=== PATIENT | male | born 1990 | race Caucasian/White ===

== ENCOUNTER 2016-11-02 14:04 | Emergency (ER) | payer BC ==
[~2016-11-02] VITALS: Ht 170.2 cm; Wt 68.8 kg
[~2016-11-02 14:04] MED LIST: ACET-749 PO; PRDXLUD MT; QUET1TAB7 PO; SERT50TA PO
[2016-11-02 14:11] VITALS: TEMP 36.8; Ht 170.2 cm; Wt 68.8 kg
[2016-11-02] MEDS ORDERED: QUET1TAB30 PO (14:35)
[2016-11-02 15:23] LABS: BASO % 0.3 %; BASO ABS # 0.03 K/uL (0-0.2); COMPLETE YES; EOS % 1.1 %; HEMATOCRIT 42.6 % (42-52); IG% 0.2 %; LYMPH % 20.8 %; LYMPH ABS # 2.18 K/uL (1.2-3.4); MEAN CELL VOLUME 84.2 fL (80-100); MEAN CORPUSCULAR HEMOGLOBIN 29.4 pg (25-34); MEAN PLATELET VOLUME 11.7 fL (7.4-10.4); MONO % 6.8 %; NEUT % 70.8 %; PLATELET COUNT 191 K/uL (130-400); RED BLOOD COUNT 5.06 M/uL (4.7-6.1); WHITE BLOOD COUNT 10.48 K/uL (4.8-10.8)
[2016-11-02 15:29] LABS: URINE APPEARANCE CLEAR (CLEAR); URINE BILIRUBIN NEG (NEG); URINE COLOR DK YELLOW; URINE EPITHELIAL CELL AUTO 20-30 /lpf (0-5); URINE NITRITE NEG (NEG); URINE SPECIFIC GRAVITY 1.022 (1.000-1.030); UROBILINOGEN NEG (NEG)
[2016-11-02 15:31] LABS: MANUAL MICROSCOPIC REQUIRED? NO; REVIEW REQ? NO
[2016-11-02 15:46] LABS: ALT/SGPT 18 U/L (12-78); AST/SGOT 8 U/L (15-37); BLOOD UREA NITROGEN 9 mg/dl (7-18); BUN/CREATININE RATIO 8.2 (10-20); CALCIUM 9.2 mg/dl (8.5-10.1); CARBON DIOXIDE 29 mmol/L (21-32); CHLORIDE 106 mmol/L (98-107); GLUCOSE 89 mg/dl (70-99); POTASSIUM 3.8 mmol/L (3.5-5.1); SODIUM 143 mmol/L (136-145)
[2016-11-02 15:49] LABS: BENZODIAZEPINE, URINE NEG (NEG); COCAINE,URINE NEG (NEG); PHENCYCLIDINE, URINE NEG (NEG)
[2016-11-02 15:57] LABS: ALB/GLOB RATIO 1.2 (0.9-2); ALKALINE PHOSPHATASE 65 U/L (45-117); THYROID STIMULATING HORMONE 0.513 uIu/ml (0.300-4.500)
--- NOTE | 2016-11-02 16:15 | EMERGENCY ROOM VISIT NOTE ---
History Report prepared by Qamaribricardo: Suzette Owusu Under the Supervision of: Dr. Rodolfo Portillo D.O. First contact with patient: 13:51 Chief Complaint: MENTAL HEALTH EVALUATION Stated Complaint: MENTAL HEALTH History of Present Illness The patient is a 26 year old male who presents to the Emergency Room with complaints of needing a mental health evaluation. He admits to recently worsening anxiety and depression, and states "yesterday I had a meltdown". He has history of anxiety and depression but notes he has been off his regular psychiatric medications for the past few months as his insurance ran out, and he could not continue to afford the medications, which included Zoloft. The patient admits to having recent suicidal thoughts for the past few days, stating "I wanted to disappear". He notes he has lost custody of two of his children, and recently lost custody of the 3rd child with his ex-girlfriend. He states seeing posts on Facebook where friends and family were calling him "worthless" and a " beat dad", made him feel even more depressed. There is a 302 warrant that has been issued on the patient his by his ex-girlfriend after he told her something along the lines of "no one is going to see me again " last night. The patient reports he no longer had a place to live until last night, when a coworker of his took him in and gave him a room in her home. He also complains of racing thoughts and chest discomfort because of his anxiety. He denies any other medical complaints at this time. The patient was treated inpatient at the [facility] when he was in High School after a previous suicide attempt, but states he has never been treated inpatient since then. Source of History: patient Onset: COMPLIANCE INTERN Position: other (global) Timing: worsening Modifying Factors (Worsening): other (recently going off psychiatric medications) Associated Symptoms: + chest pain Review of Systems See HPI for pertinent positives & negatives. A total of 10 systems reviewed and were otherwise negative. Past Medical & Surgical Medical Problems: (1) Abdominal pain, acute (2) Abdominal pain, acute (3) Anxiety (4) Asthma (5) Bacterial pneumonia (6) Bronchitis (7) Depression (8) Nausea (9) PNA (pneumonia) Surgical Problems: (1) S/P tonsillectomy and adenoidectomy Family History Diabetes mellitus FH: cancer Hypertension Social History Smoking Status: Current Every Day Smoker Alcohol Use: none Drug Use: none Marital Status: in relationship Housing Status: lives with family Occupation Status: unemployed Current/Historical Medications Scheduled PRN Quetiapine Fumarate (Seroquel), 25 MG PO HS PRN for Sleep Allergies Coded Allergies: No Known Allergies (Unverified , 11/02/16) Physical Exam Vital Signs Date Time Temp Pulse Resp B/P Pulse Ox O2 Delivery O2 Flow Rate FiO2 11/02/16 16:56 98 16 139/81 97 Room Air 11/02/16 14:11 36.8 81 17 134/79 99 Room Air Physical Exam GENERAL: Patient is sitting up in bed, anxious appearing, alert, well nourished , no distress, non-toxic EYE EXAM: normal conjunctiva OROPHARYNX: no exudate, no erythema, lips, buccal mucosa, and tongue normal and mucous membranes are moist NECK: supple, no nuchal rigidity, no adenopathy, non-tender LUNGS: Clear to auscultation. Normal chest wall mechanics HEART: no murmurs, S1 normal and S2 normal ABDOMEN: abdomen soft, non-tender, normo-active bowel sounds, no masses, no rebound or guarding. BACK: Back is symmetrical on inspection and there is no deformity, no midline tenderness, no CVA tenderness. SKIN: no rashes and no bruising UPPER EXTREMITIES: upper extremities are grossly normal. LOWER EXTREMITIES: No pitting edema. NEURO EXAM: Normal sensorium, cranial nerves II-XII grossly intact, normal speech, no gross weakness of arms, no gross weakness of legs. Gross sensation intact. PSYCHIATRIC: The patient denies any homicidal ideation, denies a current plan of harming himself but states he thinks about it, admits to racing thoughts and insomnia. Suicidal statements were made to his ex-girlfriend. Medical Decision & Procedures Laboratory Results 11/02/16 14:58 Red Blood Count 5.06, Mean Corpuscular Volume 84.2, Mean Corpuscular Hemoglobin 29.4, Mean Corpuscular Hemoglobin Concent 35.0, Mean Platelet Volume 11.7, Neutrophils (%) (Auto) 70.8, Lymphocytes (%) (Auto) 20.8, Monocytes (%) (Auto) 6.8, Eosinophils (%) (Auto) 1.1, Basophils (%) (Auto) 0.3, Neutrophils # (Auto) 7.42, Lymphocytes # (Auto) 2.18, Monocytes # (Auto) 0.71, Eosinophils # (Auto) 0.12, Basophils # (Auto) 0.03 11/02/16 14:58 Test 11/02/16 14:32 11/02/16 14:55 11/02/16 14:58 Urine Color DK YELLOW Urine Appearance CLEAR (CLEAR) Urine pH 7.0 (4.5-7.5) Urine Specific [place] 1.022 (1.000-1.030) Urine Protein NEG (NEG) Urine Glucose (UA) NEG (NEG) Urine Ketones TRACE (NEG) Urine Occult Blood NEG (NEG) Urine Nitrite NEG (NEG) Urine Bilirubin NEG (NEG) Urine Urobilinogen NEG (NEG) Urine Leukocyte Esterase TRACE (NEG) Urine WBC (Auto) 1-5 /hpf (0-5) Urine RBC (Auto) 0-4 /hpf (0-4) Urine Hyaline Casts (Auto) 5-10 /lpf (0-5) Urine Epithelial Cells (Auto) 20-30 /lpf (0-5) Urine Bacteria (Auto) NEG (NEG) Urine Opiates Screen NEG (NEG) Urine Methadone, Qualitative NEG (NEG) Urine Barbiturates NEG (NEG) Urine Phencyclidine (PCP) Level NEG (NEG) Ur Amphetamine/Methamphetamine NEG (NEG) MDMA (Ecstasy) Screen NEG (NEG) Urine Benzodiazepines Screen NEG (NEG) Urine Cocaine Metabolite NEG (NEG) Urine Marijuana (THC) POS (NEG) Bedside Glucose 89 mg/dl (70-99) White Blood Count 10.48 K/uL (4.8-10.8) Red Blood Count 5.06 M/uL (4.7-6.1) Hemoglobin 14.9 g/dL (14.0-18.0) Hematocrit 42.6 % (42-52) Mean Corpuscular Volume 84.2 fL (80-100) Mean Corpuscular Hemoglobin 29.4 pg (25-34) Mean Corpuscular Hemoglobin Concent 35.0 g/dl (32-36) Platelet Count 191 K/uL (130-400) Mean Platelet Volume 11.7 fL (7.4-10.4) Neutrophils (%) (Auto) 70.8 % Lymphocytes (%) (Auto) 20.8 % Monocytes (%) (Auto) 6.8 % Eosinophils (%) (Auto) 1.1 % Basophils (%) (Auto) 0.3 % Neutrophils # (Auto) 7.42 K/uL (1.4-6.5) Lymphocytes # (Auto) 2.18 K/uL (1.2-3.4) Monocytes # (Auto) 0.71 K/uL (0.11-0.59) Eosinophils # (Auto) 0.12 K/uL (0-0.5) Basophils # (Auto) 0.03 K/uL (0-0.2) RDW Standard Deviation 40.9 fL (36.4-46.3) RDW Coefficient of Variation 13.5 % (11.5-14.5) Immature Granulocyte % (Auto) 0.2 % Immature Granulocyte # (Auto) 0.02 K/uL (0.00-0.02) Anion Gap 8.0 mmol/L (3-11) Est Creatinine Clear Calc Drug Dose 96.0 ml/min Estimated GFR () 107.6 Estimated GFR (Non- 92.8 BUN/Creatinine Ratio 8.2 (10-20) Calcium Level 9.2 mg/dl (8.5-10.1) Total Bilirubin 0.4 mg/dl (0.2-1) Direct Bilirubin < 0.1 mg/dl (0-0.2) Aspartate Amino Transf (AST/SGOT) 8 U/L (15-37) Alanine Aminotransferase (ALT/SGPT) 18 U/L (12-78) Alkaline Phosphatase 65 U/L (45-117) Total Protein 7.5 gm/dl (6.4-8.2) Albumin 4.1 gm/dl (3.4-5.0) Globulin 3.4 gm/dl (2.5-4.0) Albumin/Globulin Ratio 1.2 (0.9-2) Thyroid Stimulating Hormone (TSH) 0.513 uIu/ml (0.300-4.500) Ethyl Alcohol mg/dL < 3.0 mg/dl (0-3) Laboratory results per my review. ED Course ED COURSE: Vital signs were reviewed and showed normal vital signs. The patients medical record was reviewed The above diagnostic studies were performed and reviewed. ED treatments and interventions as stated above. 1414: The patient was evaluated in room A7. A complete history and physical examination was performed. 1550: I reevaluated the patient. He is doing well and just finished lunch. 1605: Nursing informed me the patient has been medically cleared and Can Help has been paged. 1650: I reevaluated the patient. He states he wants to go home, and does not think he needs inpatient treatment at this time. 1913: Nursing informed me the patient has been accepted at [facility]. Case Management will begin transfer paperwork. 191: Upon reevaluation, the patient is resting comfortably. I discussed my findings with the patient and he understands and agrees with the treatment plan. Based on the patients age, coexisting illnesses, exam and lab findings the decision to treat as an inpatient was made. The patient remained stable while under my care. The patient will be evaluated for further management. Medical Decision Etiologies such as mood disorder, infection, hypoglycemia, electrolyte abnormalities, cardiac sources, intracerebral event, toxicologic, neurologic, as well as others were entertained. Patient is an 26-year-old male who presents the ER on a 302 for suicidal statements which made to his ex-girlfriend. He notes he has been having suicidal thoughts for the past several days but does not have a clear plan. He has been admitted before. He has a history of depression and anxiety. He has no other complaints at this time. Labs are unremarkable including CBC, BMP, LFTs, bilirubin and TSH. UA was contaminated with multiple epithelial cells. Patient was reevaluated and resting comfortably. He was evaluated by can help in 3 to was signed this patient did not want to come in willingly. Tox was positive for marijuana. Alcohol was negative. Patient was admitted on 302 transferred to [place] for mood disorder with SI. Impression Primary Impression: Mood disorder Additional Impression: Suicidal ideation Scribe Attestation The scribe's documentation has been prepared under my direction and personally reviewed by me in its entirety. I confirm that the note above accurately reflects all work, treatment, procedures, and medical decision making performed by me. Departure Information Dispostion Mental Health Acute Care (The patient has been accepted as a transfer to [facility]. He is awaiting transport) Referrals No Doctor, Assigned (PCP) Patient Instructions My [facility] Problem Qualifiers
[2016-11-02 20:37] VITALS: BP 125/75; PULSE 82; O2SAT 100
[2017-02-15] MEDS ORDERED: QUET1TAB32 PO (15:43)
[2017-02-15] MEDS ORDERED: ZLF/100 PO (15:43)
== END 2016-11-02 20:38 ==
LOC: EDSEX 14:04 → EDBD 14:04 → C.EDA 14:07
DX: F39 Unspecified mood [affective] disorder (principal); R45.851 Suicidal ideations; J45.909 Unspecified asthma, uncomplicated; F17.200 Nicotine dependence, unspecified, uncomplicated

== ENCOUNTER 2016-11-16 14:58 | Emergency (ER) | payer BC ==
[~2016-11-16] VITALS: Ht 170.2 cm; Wt 68.0 kg
[2016-11-16 14:58] VITALS: TEMP 36.8; Ht 170.2 cm; Wt 68.0 kg
[~2016-11-16 14:58] MED LIST changes: -ACET-749 PO; -PRDXLUD MT; +QUET1TAB30 PO; -QUET1TAB7 PO; -SERT50TA PO
[2016-11-16] MEDS ORDERED: ONDANSETRON INJ 2 MG/ML 2 ML VIAL IV STA (15:36)
[2016-11-16] MEDS ORDERED: SODIUM CHLORIDE 0.9% 1000ML 2,000 ML IV STA (15:36)
[2016-11-16] MEDS ORDERED: NRN100 PO (15:43)
[2016-11-16 15:49] LABS: BASO % 0.1 %; BASO ABS # 0.01 K/uL (0-0.2); COMPLETE YES; EOS % 0.5 %; HEMATOCRIT 44.1 % (42-52); IG% 0.2 %; MEAN CELL VOLUME 84.2 fL (80-100); MEAN CORPUSCULAR HEMOGLOBIN 29.6 pg (25-34); MEAN CORPUSCULAR HGB CONC 35.1 g/dl (32-36); MONO % 4.5 %; NEUT % 84.7 %; PLATELET COUNT 208 K/uL (130-400); RED BLOOD COUNT 5.24 M/uL (4.7-6.1); WHITE BLOOD COUNT 13.95 K/uL (4.8-10.8)
[2016-11-16 16:03] LABS: BUN/CREATININE RATIO 11.3 (10-20); CALCIUM 9.2 mg/dl (8.5-10.1); CREATININE 1.2 mg/dl (0.60-1.40); POTASSIUM 3.8 mmol/L (3.5-5.1)
[2016-11-16 16:06] LABS: ALB/GLOB RATIO 1.3 (0.9-2)
[2016-11-16] MEDS ORDERED: PROMETHAZINE HCL INJ 12.5 MG in SODIUM CHLORIDE 0.9% 50ML 50 ML IV STA (16:18)
[2016-11-16] MEDS ORDERED: KETOROLAC TROMETHAMINE 30 MG/ML VIAL IV STA (16:18)
--- NOTE | 2016-11-16 17:49 | DIAGNOSTIC IMAGING REPORT ---
CHEST AND ABDOMEN 2 VIEWS HISTORY: Generalized abdominal pain with nausea, vomiting, diarrhea. COMPARISON: Chest 07/11/2015. FINDINGS: The lungs are clear. The cardiomediastinal silhouette is within normal limits. There is no pneumoperitoneum or pneumatosis. There are few borderline dilated air-filled loops of small bowel within the abdomen measuring up to 3.1 cm in diameter. There is gas seen throughout the colon.. A few calcifications within the left deep pelvis favor phleboliths. No renal or ureteral calculi. IMPRESSION: 1. No acute process within the chest. 2. A few borderline dilated air-filled loops of small bowel within the abdomen. However, there remains gas gas and stool within the colon. Therefore, this favors a mild ileus or possibly a low-grade partial small bowel obstruction. Electronically signed by: Ronnie Caldwell M.D. 11/16/2016 5:48 PM Dictated Date/Time: 11/16/2016 5:45 PM
[2016-11-16] MEDS ORDERED: OPTIRAY 320 IV PRN (18:30)
[2016-11-16 19:31] LABS: URINE APPEARANCE CLEAR (CLEAR); URINE BILIRUBIN NEG (NEG); URINE COLOR YELLOW; URINE NITRITE NEG (NEG); URINE PH >= 9.0 (4.5-7.5); URINE SPECIFIC GRAVITY > 1.045 (1.000-1.030); UROBILINOGEN NEG (NEG)
[2016-11-16 19:35] LABS: MANUAL MICROSCOPIC REQUIRED? NO; REVIEW REQ? NO
--- NOTE | 2016-11-16 19:44 | DIAGNOSTIC IMAGING REPORT ---
ABDOMEN AND PELVIS CT WITH IV CONTRAST CT DOSE: 304.66 mGy.cm HISTORY: Generalized abdominal pain. Nausea. Vomiting. TECHNIQUE: Multiaxial CT images of the abdomen and pelvis were performed following the use of intravenous contrast. COMPARISON STUDY: Chest and abdominal series 11/16/2016. FINDINGS: The lung bases are clear. No pneumoperitoneum. No pneumatosis. The liver, gallbladder, pancreas, right adrenal gland, and kidneys are unremarkable. No hydronephrosis. A 6 mm hypodense lesion within the spleen is too small to characterize but statistically represents a benign lesion. An indeterminate 1.8 cm left adrenal gland nodule. No retroperitoneal lymphadenopathy. The bladder is unremarkable. No pelvic fluid. Multiple borderline dilated gas and fluid-filled loops of small bowel seen throughout the abdomen. There is no transition point to suggest a bowel obstruction. The colon is normal in course and caliber. There is a normal appendix measuring up to 5 mm. No bowel wall thickening. IMPRESSION: 1. Multiple borderline dilated gas and fluid-filled loops of small bowel seen throughout the abdomen. There is no transition point to suggest an obstruction. This could represent an ileus or gastroenteritis. 2. No bowel wall thickening. 3. Normal appendix. 4. An indeterminate 1.8 cm left adrenal gland nodule. Follow-up nonemergent dedicated adrenal CT can be used for further characterization. Electronically signed by: Ronnie Caldwell M.D. 11/16/2016 7:43 PM Dictated Date/Time: 11/16/2016 7:35 PM
[2016-11-16] MEDS ORDERED: ONDA4TAB10 SL (19:48)
--- NOTE | 2016-11-16 19:49 | EMERGENCY ROOM VISIT NOTE ---
History First contact with patient: 15:36 Chief Complaint: VOMITING Stated Complaint: NAUSEA, VOMITING, DIARRHEA Nursing Triage Summary: Per EMS, patient c/o of n/v/d. Emesis x 2 [employer]. Patient c/o of abdominal pain and headache since yesterday. Patient denies drinking alcohol yesterday but reports smoking marihuanna. History of Present Illness Patient is a 26-year-old white male who presents to the emergency department by ambulance from his PCPs office for evaluation of abdominal pain, nausea, vomiting and diarrhea. He states that his symptoms started with diarrhea about 3 days ago. He reports multiple loose, watery bowel movements per day. Today, he woke up nauseous and vomited 4. He states that his last episode of vomiting was upon arrival in the emergency department. He reports generalized body and muscle aches as well. He tried to eat and drink but would vomit afterwards. He was seen at the [facility] office for his symptoms today and apparently was near syncopal and had an episode of tingling in his hands and cramping in his hands which prompted them to call the ambulance to bring him here to the emergency department. He reports bilateral lower abdominal pain that he rates a 6/10. He has not had a fever. He reports that his roommate has been sick with similar symptoms. 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 He has not been on any antibiotics recently. He denies melena, hematochezia or hematemesis. Positive marijuana use. He has never had any abdominal surgeries. Review of Systems Review of systems as per HPI. All other systems reviewed were negative. 10 systems reviewed. Past Medical/Surgical History Medical Problems: (1) Abdominal pain, acute (2) Abdominal pain, acute (3) Anxiety (4) Asthma (5) Asthma exacerbation (6) Back strain (7) Bacterial pneumonia (8) Bronchitis (9) Depression (10) Hand laceration (11) Mood disorder (12) Nausea (13) PNA (pneumonia) (14) Severe gingivitis (15) Suicidal ideation Surgical Problems: (1) S/P tonsillectomy and adenoidectomy Electronic medical records are reviewed and summarized as above/below. See Problem List. Family History Diabetes mellitus FH: cancer Hypertension Social History Smoking Status: Current Every Day Smoker Alcohol Use: none Drug Use: marijuana Marital Status: in relationship Housing Status: lives with family Occupation Status: employed Current/Historical Medications Scheduled Gabapentin (Gabapentin), 100 MG PO TID Sertraline HCl (Sertraline HCl), 100 MG PO DAILY Scheduled PRN Ondasetron Odt (Zofran Odt), 4 MG SL Q6H PRN for Nausea or Vomiting Quetiapine Fumarate (Seroquel), 50 MG PO HS PRN for Sleep Allergies Coded Allergies: No Known Allergies (Unverified , 11/02/16) Physical Exam Vital Signs Date Time Temp Pulse Resp B/P Pulse Ox O2 Delivery O2 Flow Rate FiO2 11/16/16 20:09 70 18 109/58 98 11/16/16 19:19 78 18 114/61 97 Room Air 11/16/16 16:48 85 18 125/71 98 Room Air 11/16/16 15:54 85 18 122/67 98 Room Air 11/16/16 15:22 95 18 129/69 98 Room Air 11/16/16 14:58 36.8 107 18 131/77 99 Room Air Physical Exam CONSTITUTIONAL: Patient is a well-appearing 26-year-old white female who is awake and alert and in no acute distress. EYES: Pupils equal, round, reactive to light and accommodation. EOMs intact without nystagmus. Sclera are anicteric. ENT: Tympanic membranes intact, with normal landmarks. External canals are clear. Oral and nasopharynx are clear. Mucous membranes are moist, no lesions , tongue and gums appear normal. NECK: No bruits auscultated. Supple without lymphadenopathy. No thyromegaly. No meningeal signs. Full active range of motion without discomfort. CARDIOVASCULAR: Regular rate and rhythm, with normal S1 and S2, no murmur or gallop or rub is heard. No carotid bruits auscultated. No JVD. Peripheral pulses easy to palpable. RESPIRATORY: Breath sounds equal and clear to auscultation without wheezes, rales, or rhonchi heard. Full and equal chest expansion without accessory muscle use or retractions. GI: Bowel sounds are present. Abdomen is soft, nondistended, mildly tender to palpation in the lower abdomen, left greater than right. No organomegaly. No pulsatile masses. No guarding or rebound. MUSCULOSKELETAL: Full range of motion of extremities x 4 with good strength. No cyanosis, edema, joint tenderness or swelling. No deformity. INTEGUMENTARY: No lesions or rash, normal skin turgor. NEUROLOGICAL: Alert, oriented, and cooperative. Cranial nerves, sensation and strength grossly intact. Pupils round, equal, and react to light, EOMs are full. LYMPH: No lymphadenopathy. Medical Decision & Procedures ER Provider Diagnostic Interpretation: CHEST AND ABDOMEN 2 VIEWS HISTORY: Generalized abdominal pain with nausea, vomiting, diarrhea. COMPARISON: Chest 07/11/2015. FINDINGS: The lungs are clear. The cardiomediastinal silhouette is within normal limits. There is no pneumoperitoneum or pneumatosis. There are few borderline dilated air-filled loops of small bowel within the abdomen measuring up to 3.1 cm in diameter. There is gas seen throughout the colon.. A few calcifications within the left deep pelvis favor phleboliths. No renal or ureteral calculi. IMPRESSION: 1. No acute process within the chest. 2. A few borderline dilated air-filled loops of small bowel within the abdomen. However, there remains gas gas and stool within the colon. Therefore, this favors a mild ileus or possibly a low-grade partial small bowel obstruction. ABDOMEN AND PELVIS CT WITH IV CONTRAST CT DOSE: 304.66 mGy.cm HISTORY: Generalized abdominal pain. Nausea. Vomiting. TECHNIQUE: Multiaxial CT images of the abdomen and pelvis were performed following the use of intravenous contrast. COMPARISON STUDY: Chest and abdominal series 11/16/2016. FINDINGS: The lung bases are clear. No pneumoperitoneum. No pneumatosis. The liver, gallbladder, pancreas, right adrenal gland, and kidneys are unremarkable. No hydronephrosis. A 6 mm hypodense lesion within the spleen is too small to characterize but statistically represents a benign lesion. An indeterminate 1.8 cm left adrenal gland nodule. No retroperitoneal lymphadenopathy. The bladder is unremarkable. No pelvic fluid. Multiple borderline dilated gas and fluid-filled loops of small bowel seen throughout the abdomen. There is no transition point to suggest a bowel obstruction. The colon is normal in course and caliber. There is a normal appendix measuring up to 5 mm. No bowel wall thickening. IMPRESSION: 1. Multiple borderline dilated gas and fluid-filled loops of small bowel seen throughout the abdomen. There is no transition point to suggest an obstruction. This could represent an ileus or gastroenteritis. 2. No bowel wall thickening. 3. Normal appendix. 4. An indeterminate 1.8 cm left adrenal gland nodule. Follow-up nonemergent dedicated adrenal CT can be used for further characterization. Laboratory Results 11/16/16 15:15 Red Blood Count 5.24, Mean Corpuscular Volume 84.2, Mean Corpuscular Hemoglobin 29.6, Mean Corpuscular Hemoglobin Concent 35.1, Mean Platelet Volume 12.0, Neutrophils (%) (Auto) 84.7, Lymphocytes (%) (Auto) 10.0, Monocytes (%) (Auto) 4.5, Eosinophils (%) (Auto) 0.5, Basophils (%) (Auto) 0.1, Neutrophils # (Auto) 11.81, Lymphocytes # (Auto) 1.40, Monocytes # (Auto) 0.63, Eosinophils # (Auto) 0.07, Basophils # (Auto) 0.01 11/16/16 15:15 Test 11/16/16 15:15 11/16/16 19:20 White Blood Count 13.95 K/uL (4.8-10.8) Red Blood Count 5.24 M/uL (4.7-6.1) Hemoglobin 15.5 g/dL (14.0-18.0) Hematocrit 44.1 % (42-52) Mean Corpuscular Volume 84.2 fL (80-100) Mean Corpuscular Hemoglobin 29.6 pg (25-34) Mean Corpuscular Hemoglobin Concent 35.1 g/dl (32-36) Platelet Count 208 K/uL (130-400) Mean Platelet Volume 12.0 fL (7.4-10.4) Neutrophils (%) (Auto) 84.7 % Lymphocytes (%) (Auto) 10.0 % Monocytes (%) (Auto) 4.5 % Eosinophils (%) (Auto) 0.5 % Basophils (%) (Auto) 0.1 % Neutrophils # (Auto) 11.81 K/uL (1.4-6.5) Lymphocytes # (Auto) 1.40 K/uL (1.2-3.4) Monocytes # (Auto) 0.63 K/uL (0.11-0.59) Eosinophils # (Auto) 0.07 K/uL (0-0.5) Basophils # (Auto) 0.01 K/uL (0-0.2) RDW Standard Deviation 41.5 fL (36.4-46.3) RDW Coefficient of Variation 13.6 % (11.5-14.5) Immature Granulocyte % (Auto) 0.2 % Immature Granulocyte # (Auto) 0.03 K/uL (0.00-0.02) Anion Gap 12.0 mmol/L (3-11) Est Creatinine Clear Calc Drug Dose 88.0 ml/min Estimated GFR () 96.8 Estimated GFR (Non- 83.5 BUN/Creatinine Ratio 11.3 (10-20) Calcium Level 9.2 mg/dl (8.5-10.1) Total Bilirubin 0.5 mg/dl (0.2-1) Aspartate Amino Transf (AST/SGOT) 16 U/L (15-37) Alanine Aminotransferase (ALT/SGPT) 19 U/L (12-78) Alkaline Phosphatase 63 U/L (45-117) Total Protein 7.4 gm/dl (6.4-8.2) Albumin 4.2 gm/dl (3.4-5.0) Globulin 3.2 gm/dl (2.5-4.0) Albumin/Globulin Ratio 1.3 (0.9-2) Lipase 173 U/L (73-393) Urine Color YELLOW Urine Appearance CLEAR (CLEAR) Urine pH >= 9.0 (4.5-7.5) Urine Specific [place] > 1.045 (1.000-1.030) Urine Protein NEG (NEG) Urine Glucose (UA) NEG (NEG) Urine Ketones TRACE (NEG) Urine Occult Blood NEG (NEG) Urine Nitrite NEG (NEG) Urine Bilirubin NEG (NEG) Urine Urobilinogen NEG (NEG) Urine Leukocyte Esterase NEG (NEG) Medications Administered Medications (Trade) Dose Ordered Sig/Dylan Route Start Time Stop Time Status Last Admin Dose Admin Ondansetron HCl 4 mg 4 mg NOW STAT IV 11/16/16 15:36 11/16/16 15:45 DC 11/16/16 15:44 4 MG Sodium Chloride (Nss 1000ml) 2,000 ml @ 999 mls/hr Q2H1M STAT IV 11/16/16 15:36 11/16/16 17:36 DC 11/16/16 15:44 999 MLS/HR Ketorolac Tromethamine 30 mg 30 mg NOW STAT IV 11/16/16 16:18 11/16/16 16:19 DC 1/27/17 16:42 30 MG Promethazine HCl/ Sodium Chloride (Phenergan Inj/ Nss 50ml) 50.5 ml @ 204 mls/hr NOW STAT IV 11/16/16 16:18 11/16/16 16:32 DC 11/16/16 16:42 204 MLS/HR Ondanset[facility] O[facility] 11/16/16 20:03 11/16/16 20:05 DC 11/16/16 20:03 1 [facility] ED Course Patient was seen and evaluated as above. Old records are reviewed. IV access was obtained and he was hydrated with normal saline solution. He was medicated with Zofran, Toradol and Phenergan IV. CBC, CMP, lipase and urinalysis were ordered. Acute abdominal series was obtained. Laboratory studies did reveal a slightly elevated white count at 13,900 with left shift and bandemia. H&H is normal. Electrolytes are within normal limits. BUN and creatinine are normal. Liver functions and lipase are not elevated. Urinalysis does demonstrate trace ketones no other indicators for infection. Acute abdominal series demonstrated a few borderline dilated air- filled loops of small bowel within the abdomen, however there remains gas and stool within the colon, favoring a minor ileus versus a possible low-grade partial small bowel obstruction. Given the CT findings CT scan was pursued, which was again more indicative of an ileus or a gastroenteritis. Appendix was visualized and was normal. An indeterminate left adrenal gland nodule was noted and nonemergent adrenal CT was recommended. The patient was reassessed. He had been given oral fluids which he had tolerated and he reported feeling better and well enough to be discharged to home. Supportive care measures were discussed. He was given a Zofran home pack. He was advised to follow a clear liquid diet, and advance as tolerated. The patient rated his discomfort a 0/10 at discharge. A female friend is driving. Differential diagnoses include dehydration, reflux, gastritis, gastroenteritis, infectious versus inflammatory colitis, food borne illness, pancreatitis, cholelithiasis, cholecystitis, appendicitis, cyclic vomiting syndrome, pyelonephritis, urinary tract infection, renal colic, diverticulitis, shingles, bowel obstruction, among others. Medical Decision See ED Course. Impression Primary Impression: Nausea, vomiting, and diarrhea Additional Impression: Abdominal pain Departure Information Prescriptions Ondasetron Odt (ZOFRAN ODT) 4 Mg Tab 4 MG SL Q6H Y for Nausea or Vomiting, #10 TAB Prov: Mariaelena Galeano PA 11/16/16 Referrals No Doctor, Assigned (PCP) Patient Instructions My [facility] Additional Instructions DO NOT drive, drink alcohol, operate machinery, or perform dangerous activities today. You were given medications in the ER that can affect your ability to safely function or operate a vehicle. Zofran(odansetron) tablets 4mg: Take one and allow it to dissolve in your mouth every four to six hours as needed for nausea or vomiting. Acetaminophen(Tylenol) may be used for fever or pain. Use 1000mg every six hours as needed. Avoid using more than 4000mg in a 24 hour period. Rest and drink plenty of fluids as tolerated. Slow sips of water or sports drinks are recommended instead of large amounts all at once. Continue current medications. Once your stomach is settled start with a clear liquid diet (jello, soup broth, etc.) and then advance as tolerated. You should avoid full, heavy meals for about 24 hrs from the time your symptoms resolved. Return to the ER for persistent vomiting, fevers, abdominal pain, chest pains, difficulty breathing, black or bloody stools, worsening of your condition, or as needed. Follow up with your primary physician in 2-3 days for a recheck of your current condition. Problem Qualifiers Additional Impression: Abdominal pain Abdominal location: generalized Qualified Codes: R10.84 - Generalized abdominal pain
[2016-11-16] MEDS ORDERED: ONDANSETRON HOME PACK 4MG OD TAB ONE (20:03)
[2016-11-16 20:09] VITALS: BP 109/58; PULSE 70; O2SAT 98
[2017-02-15] MEDS ORDERED: ZLF/100 PO (15:43)
[2017-02-15] MEDS ORDERED: QUET1TAB32 PO (15:43)
== END 2016-11-16 20:10 | disposition home or self-care (01) ==
LOC: EDBD 14:58 → C.EDB 14:59
DX: R11.2 Nausea with vomiting, unspecified (principal); R19.7 Diarrhea, unspecified; R10.84 Generalized abdominal pain; E27.8 Other specified disorders of adrenal gland; Z83.3 Family history of diabetes mellitus; Z82.49 Family history of ischemic heart disease and other diseases of the circulatory system; D72.825 Bandemia

== ENCOUNTER 2016-12-30 22:52 | Emergency (ER) | payer BC ==
[~2016-12-30] VITALS: Ht 170.2 cm; Wt 71.4 kg
[~2016-12-30 22:52] MED LIST changes: +NRN100 PO; +ONDA4TAB10 SL; -QUET1TAB30 PO
[2016-12-30 22:57] VITALS: BP 126/77; PULSE 102; TEMP 36.9; O2SAT 94; Ht 170.2 cm; Wt 71.4 kg
[2016-12-30] MEDS ORDERED: HYDROCORTISONE ACETATE 25 MG SUPP PR STA (23:19)
[2016-12-30] MEDS ORDERED: HYDR2.5C37 TOP (23:22)
--- NOTE | 2016-12-30 23:25 | EMERGENCY ROOM VISIT NOTE ---
History Report prepared by Estella: Juanita Acosta Under the Supervision of: Dr. Isabella Hamm M.D. First contact with patient: 23:05 Chief Complaint: RECTAL PAIN Stated Complaint: LARGE HEMORRHOID History of Present Illness The patient is a 26 year old male who presents to the Emergency Room with complaints of worsening rectal pain starting a few days [employer] WORK[employer]. The patient states that he has a large hemorrhoid which he states reoccurs every few months. He states that earlier tonight he felt the hemorrhoid break open and start to bleed. The patient states that over the last few days it has been increasing in size despite using creams and hot baths to treat the hemorrhoid. The patient denies any constipation or abdominal pain. The patient states that with the hemorrhoids he has rectal pain that is worsened when he coughs. Source of History: patient Onset: earlier tonight [employer] WORK[employer] Position: other (rectal) Timing: worsening Modifying Factors (Worsening): other (cough) Associated Symptoms: No abdominal pain Note: Associated symptom: rectal bleeding. Patient denies constipation. Review of Systems See HPI for pertinent positives & negatives. A total of 6 systems reviewed and were otherwise negative. Past Medical & Surgical Medical Problems: (1) Abdominal pain, acute (2) Abdominal pain, acute (3) Anxiety (4) Asthma (5) Asthma exacerbation (6) Back strain (7) Bacterial pneumonia (8) Bronchitis (9) Depression (10) Hand laceration (11) Mood disorder (12) Nausea (13) PNA (pneumonia) (14) Severe gingivitis (15) Suicidal ideation Surgical Problems: (1) S/P tonsillectomy and adenoidectomy Family History Diabetes mellitus FH: cancer Hypertension Social History Smoking Status: Current Every Day Smoker Alcohol Use: none Drug Use: marijuana Marital Status: in relationship Housing Status: lives with family Occupation Status: employed Current/Historical Medications Scheduled Gabapentin (Gabapentin), 100 MG PO TID Hydrocortisone 2.5% (Rectal) (Anusol-Hc 2.5%), 1 APPLN TOP BID Sertraline HCl (Sertraline HCl), 100 MG PO DAILY Scheduled PRN Ondasetron Odt (Zofran Odt), 4 MG SL Q6H PRN for Nausea or Vomiting Quetiapine Fumarate (Seroquel), 50 MG PO HS PRN for Sleep Allergies Coded Allergies: No Known Allergies (Unverified , 12/30/16) Physical Exam Vital Signs Date Time Temp Pulse Resp B/P Pulse Ox O2 Delivery O2 Flow Rate FiO2 12/30/16 22:57 36.9 102 18 126/77 94 Room Air Physical Exam Vital signs reviewed. General: Well-appearing male, in no significant distress. Abdomen: Soft, nontender, nondistended, positive bowel sounds. Neurologic: Patient awake alert and oriented x 3. Skin: Warm, dry, no rash Rectal: A grape sized external hemorrhoid, tender to palpation, no obvious thrombosis, no bleeding. Medical Decision & Procedures Medications Administered Medications (Trade) Dose Ordered Sig/Dylan Route Start Time Stop Time Status Last Admin Dose Admin Hydrocortisone Acetate (Anusol Hc Supp) 25 mg NOW STAT OK 12/30/16 23:19 12/30/16 23:20 DC 12/30/16 23:27 25 MG Acetaminophen/ Hydrocodone Bitart (Durant 5/325mg Home Pack) 1 homepack UD ONCE PO 12/30/16 23:30 12/30/16 23:31 DC 12/30/16 23:28 1 HOMEPACK ED Course 2312: Past medical records reviewed. The patient was evaluated in room A2. A complete history and physical examination was performed. I discussed with him the treatment plan for his symptoms. He verbalized agreement of the treatment plan. The patient was discharged home. 2319: Ordered Hydrocortisone Acetate 25 mg OK. 2330: Ordered Acetaminophen/Hydrocodone Bitart 1 homepack PO. Medical Decision The patient is a 26 year old male who presents to the ED with complaints of rectal pain. Differentials include but is not limited to rectal hemorrhoid, thrombosis hemorrhoids, perirectal abscess, rectal fissure, mass, and rectal prolapse. This patient was evaluated and appeared to be in no significant distress. Physical examination reveals a tender external hemorrhoid. It is not clearly thrombosed. Patient was advised to conservative measures. He will follow-up with his physician this week for reevaluation. Patient was given a prescription for Anusol HC suppositories. Patient was given a hot home pack of Durant. He will return to the ER for worsening of symptoms or any medical concerns. Impression Primary Impression: Hemorrhoid Scribe Attestation The scribe's documentation has been prepared under my direction and personally reviewed by me in its entirety. I confirm that the note above accurately reflects all work, treatment, procedures, and medical decision making performed by me. Departure Information Dispostion Home / Self-Care Prescriptions Hydrocortisone 2.5% (Rectal) (ANUSOL-HC 2.5%) 2.5 % Cre 1 APPLN TOP BID for 7 Days, #14 GM 1 Refill Prov: Isabella Hamm M.D. 12/30/16 Referrals No Doctor, Assigned (PCP) Forms HOME CARE DOCUMENTATION FORM, IMPORTANT VISIT INFORMATION, WORK / SCHOOL INSTRUCTIONS Patient Instructions My [facility] Additional Instructions Diagnosis: Hemorrhoid Durant one to 2 tabs every 6 hours as needed for pain. Do not drive or take Tylenol with this medication. Anusol HC suppository one suppository twice daily for 7 days. Follow-up with your physician this week for reevaluation. Continue conservative measures with warm soaks and topical ointments. Return to the emergency department for worsening of symptoms or any medical concerns.
[2016-12-30] MEDS ORDERED: NORCO 5/325MG HOME PACK PO ONE (23:30)
[2017-02-15] MEDS ORDERED: ZLF/100 PO (15:43)
[2017-02-15] MEDS ORDERED: QUET1TAB32 PO (15:43)
== END 2016-12-30 23:34 | disposition home or self-care (01) ==
LOC: C.EDB 22:54 → C.EDA 23:34
DX: K64.4 Residual hemorrhoidal skin tags (principal); F32.9 Major depressive disorder, single episode, unspecified; F17.200 Nicotine dependence, unspecified, uncomplicated; Z83.3 Family history of diabetes mellitus; Z82.49 Family history of ischemic heart disease and other diseases of the circulatory system

== ENCOUNTER 2017-01-23 16:38 | Emergency (ER) | payer BC ==
[~2017-01-23] VITALS: Ht 167.6 cm; Wt 71.1 kg
[~2017-01-23 16:38] MED LIST changes: +HYDR2.5C37 TOP
[2017-01-23 16:41] VITALS: TEMP 36.8; Ht 167.6 cm; Wt 71.1 kg
[2017-01-23] MEDS ORDERED: SODIUM CHLORIDE 0.9% 1000ML 1,000 ML IV STA (17:24)
[2017-01-23] MEDS ORDERED: KETOROLAC TROMETHAMINE 30 MG/ML VIAL IV STA (17:24)
[2017-01-23] MEDS ORDERED: ONDANSETRON INJ 2 MG/ML 2 ML VIAL IV STA (17:24)
[2017-01-23 18:01] LABS: BASO % 0.5 %; BASO ABS # 0.04 K/uL (0-0.2); COMPLETE YES; EOS % 1.6 %; HEMATOCRIT 38.5 % (42-52); IG% 0.1 %; LYMPH % 34.9 %; LYMPH ABS # 2.67 K/uL (1.2-3.4); MEAN CORPUSCULAR HEMOGLOBIN 29.1 pg (25-34); MEAN CORPUSCULAR HGB CONC 34.3 g/dl (32-36); MEAN PLATELET VOLUME 11.5 fL (7.4-10.4); MONO % 6.8 %; NEUT % 56.1 %; PLATELET COUNT 186 K/uL (130-400); RED BLOOD COUNT 4.53 M/uL (4.7-6.1); WHITE BLOOD COUNT 7.66 K/uL (4.8-10.8)
[2017-01-23 18:24] LABS: ALB/GLOB RATIO 1.2 (0.9-2); BUN/CREATININE RATIO 15.2 (10-20); CALCIUM 9.5 mg/dl (8.5-10.1); CREATININE 0.89 mg/dl (0.60-1.40); POTASSIUM 4.4 mmol/L (3.5-5.1)
--- NOTE | 2017-01-23 18:32 | DIAGNOSTIC IMAGING REPORT ---
CT OF THE HEAD WITHOUT CONTRAST CLINICAL HISTORY: Worst headache of life. COMPARISON STUDY: Head CT August 02, 2008. CT DOSE: 537.48 mGy.cm TECHNIQUE: Helical axial images of the head were obtained without IV contrast. Automated exposure control was utilized for the study. FINDINGS: No acute intracranial hemorrhage, midline shift or mass effect is present. Ventricular system is normal. Basilar cisterns are patent. Garland-white differentiation is maintained. There are no findings to suggest acute dural sinus thrombosis or acute territorial infarct. There is moderate mucosal thickening within visualized portions of the ethmoid sinuses. Mastoid air cells are clear. There are no calvarial abnormalities. IMPRESSION: 1. No acute intracranial findings. 2. Moderate mucosal thickening of the ethmoid sinuses, partially imaged on this exam. Electronically signed by: Osmin Goss M.D. 01/23/2017 6:31 PM Dictated Date/Time: 01/23/2017 6:28 PM
[2017-01-23] MEDS ORDERED: METH4PAK PO (19:03)
[2017-01-23] MEDS ORDERED: AMOX875T PO (19:03)
--- NOTE | 2017-01-23 19:04 | EMERGENCY ROOM VISIT NOTE ---
History First contact with patient: 17:08 Chief Complaint: HEADACHE Stated Complaint: MASSIVE HEADACHE, LIGHTHEADED, VOMITING History of Present Illness The patient is a 26 year old male who presents to the Emergency Room with complaints of headache, lightheadedness and vomiting. The patient states her symptoms began yesterday. He has had a severe headache. The patient states that he has had migraines in the past. He states that this headache feels differently because his head feels heavy. He does state this is one of the worst headaches of his life. He rates the discomfort a 7/10. The patient denies any recent head injury. He denies any neck pain, fever, numbness, weakness, blurred vision or slurred speech. He has not taken any medication at home for his pain. Review of Systems A complete 10-point Review of Systems was discussed with the patient, with pertinent positives and negatives listed in the History of Present Illness. All remaining Review of Systems questions can be considered negative unless otherwise specified. Past Medical/Surgical History Medical Problems: (1) Abdominal pain, acute (2) Abdominal pain, acute (3) Anxiety (4) Asthma (5) Asthma exacerbation (6) Back strain (7) Bacterial pneumonia (8) Bronchitis (9) Depression (10) Hand laceration (11) Mood disorder (12) Nausea (13) PNA (pneumonia) (14) Severe gingivitis (15) Suicidal ideation Surgical Problems: (1) S/P tonsillectomy and adenoidectomy Family History Diabetes mellitus FH: cancer Hypertension Social History Smoking Status: Former Smoker Alcohol Use: none Drug Use: marijuana Marital Status: in relationship Housing Status: lives with family Occupation Status: employed Current/Historical Medications Scheduled Amoxicillin & Pot Clavulanate (Augmentin 875-125 mg), 1 TAB PO BID Methylprednisolone (Medrol Dosepak), 0 PO DAILY Sertraline HCl (Sertraline HCl), 100 MG PO DAILY Scheduled PRN Ondasetron Odt (Zofran Odt), 4 MG SL Q6H PRN for Nausea or Vomiting Quetiapine Fumarate (Seroquel), 50 MG PO HS PRN for Sleep Allergies Coded Allergies: No Known Allergies (Unverified , 01/23/17) Physical Exam Vital Signs Date Time Temp Pulse Resp B/P Pulse Ox O2 Delivery O2 Flow Rate FiO2 01/23/17 19:16 68 18 111/60 98 Room Air 01/23/17 18:03 70 18 112/56 99 Room Air 01/23/17 16:41 36.8 79 18 127/74 99 Room Air Physical Exam VITALS: Vitals are noted on the nurse's note and reviewed by myself. Vital signs stable. GENERAL: This is a 26-year-old male, in no acute distress, nondiaphoretic, well- developed well-nourished. SKIN: The skin was without rashes, erythema, edema, or bruising. There is no tenting of the skin. Capillary reflex less than 2 seconds. HEAD: Normocephalic atraumatic. EARS: External auditory canals clear, tympanic membranes pearly garland without erythema or effusion bilaterally. EYES: Pupils equal round and reactive to light and accommodation. Conjunctivae without injection, sclerae without icterus. Extraocular movements intact. MOUTH: Mucous membranes moist. Tonsils are not enlarged. Pharynx without erythema or exudate. NECK: Supple without nuchal rigidity. No lymphadenopathy. No meningismus. HEART: Regular rate and rhythm without murmurs gallops or rubs. LUNGS: Clear to auscultation bilaterally without wheezes, rales or rhonchi. ABDOMEN: Soft, nontender to palpation. MUSCULOSKELETAL: Full range of motion throughout. Strength 5/5 throughout. NEURO: Patient was alert and oriented to person place and time. Normal sensation to light and sharp touch. Deep tendon reflexes 2+ throughout. No focal neurological deficits. Negative Romberg and pronator drift. Normal finger to nose testing. Normal rapid alternating movements. Medical Decision & Procedures ER Provider Diagnostic Interpretation: CT OF THE HEAD WITHOUT CONTRAST CLINICAL HISTORY: Worst headache of life. COMPARISON STUDY: Head CT August 02, 2008. CT DOSE: 537.48 mGy.cm TECHNIQUE: Helical axial images of the head were obtained without IV contrast. Automated exposure control was utilized for the study. FINDINGS: No acute intracranial hemorrhage, midline shift or mass effect is present. Ventricular system is normal. Basilar cisterns are patent. Garland-white differentiation is maintained. There are no findings to suggest acute dural sinus thrombosis or acute territorial infarct. There is moderate mucosal thickening within visualized portions of the ethmoid sinuses. Mastoid air cells are clear. There are no calvarial abnormalities. IMPRESSION: 1. No acute intracranial findings. 2. Moderate mucosal thickening of the ethmoid sinuses, partially imaged on this exam. Laboratory Results 01/23/17 17:50 Red Blood Count 4.53, Mean Corpuscular Volume 85.0, Mean Corpuscular Hemoglobin 29.1, Mean Corpuscular Hemoglobin Concent 34.3, Mean Platelet Volume 11.5, Neutrophils (%) (Auto) 56.1, Lymphocytes (%) (Auto) 34.9, Monocytes (%) (Auto) 6.8, Eosinophils (%) (Auto) 1.6, Basophils (%) (Auto) 0.5, Neutrophils # (Auto) 4.30, Lymphocytes # (Auto) 2.67, Monocytes # (Auto) 0.52, Eosinophils # (Auto) 0.12, Basophils # (Auto) 0.04 01/23/17 17:50 Test 01/23/17 17:50 White Blood Count 7.66 K/uL (4.8-10.8) Red Blood Count 4.53 M/uL (4.7-6.1) Hemoglobin 13.2 g/dL (14.0-18.0) Hematocrit 38.5 % (42-52) Mean Corpuscular Volume 85.0 fL (80-100) Mean Corpuscular Hemoglobin 29.1 pg (25-34) Mean Corpuscular Hemoglobin Concent 34.3 g/dl (32-36) Platelet Count 186 K/uL (130-400) Mean Platelet Volume 11.5 fL (7.4-10.4) Neutrophils (%) (Auto) 56.1 % Lymphocytes (%) (Auto) 34.9 % Monocytes (%) (Auto) 6.8 % Eosinophils (%) (Auto) 1.6 % Basophils (%) (Auto) 0.5 % Neutrophils # (Auto) 4.30 K/uL (1.4-6.5) Lymphocytes # (Auto) 2.67 K/uL (1.2-3.4) Monocytes # (Auto) 0.52 K/uL (0.11-0.59) Eosinophils # (Auto) 0.12 K/uL (0-0.5) Basophils # (Auto) 0.04 K/uL (0-0.2) RDW Standard Deviation 43.9 fL (36.4-46.3) RDW Coefficient of Variation 14.1 % (11.5-14.5) Immature Granulocyte % (Auto) 0.1 % Immature Granulocyte # (Auto) 0.01 K/uL (0.00-0.02) Anion Gap 6.0 mmol/L (3-11) Est Creatinine Clear Calc Drug Dose 114.4 ml/min Estimated GFR () 137.7 Estimated GFR (Non- 118.8 BUN/Creatinine Ratio 15.2 (10-20) Calcium Level 9.5 mg/dl (8.5-10.1) Total Bilirubin 0.3 mg/dl (0.2-1) Aspartate Amino Transf (AST/SGOT) 9 U/L (15-37) Alanine Aminotransferase (ALT/SGPT) 26 U/L (12-78) Alkaline Phosphatase 55 U/L (45-117) Total Protein 7.0 gm/dl (6.4-8.2) Albumin 3.8 gm/dl (3.4-5.0) Globulin 3.2 gm/dl (2.5-4.0) Albumin/Globulin Ratio 1.2 (0.9-2) Chemistry Specimen Hemolysis Medications Administered Medications (Trade) Dose Ordered Sig/Dylan Route Start Time Stop Time Status Last Admin Dose Admin Sodium Chloride (Nss 1000ml) 1,000 ml @ 999 mls/hr Q1H1M STAT IV 01/23/17 17:24 01/23/17 18:24 DC 01/23/17 17:58 999 MLS/HR Ondansetron HCl (Zofran Inj) 4 mg NOW STAT IV 01/23/17 17:24 01/23/17 17:26 DC 01/23/17 17:59 4 MG Ketorolac Tromethamine (Toradol Inj) 30 mg NOW STAT IV 01/23/17 17:24 01/23/17 17:26 DC 01/23/17 17:59 30 MG Medical Decision The differential diagnosis includes acute intracranial bleed, meningitis, encephalitis, mass or mass effect, sinusitis, infection, tumor, headache, temporal arteritis and carbon monoxide exposure, and migraine. The patient was evaluated as above. Labs were drawn and IV access was obtained. Imaging studies were performed and read by radiology as above. The patient was medicated with 1 L normal saline solution, 30 mg Toradol IV and 4 mg Zofran IV. The patient was reassessed multiple times during their stay in the emergency department and remained in stable condition. The patient is a 26-year-old male who presents today complaining of headache. Labs revealed no leukocytosis or anemia. There were no concerning electrolyte abnormalities. CT of the head was performed as this headache is different from patient's previous migraines. This did show some evidence of ethmoid sinus disease and given the patient's new onset of a headache, I will treat him with an antibiotic and steroid. Patient was given IV hydration, Toradol and Zofran with good relief of his headache. There are no signs of meningitis or encephalitis. The patient is afebrile. He was instructed to follow-up closely with the primary care provider for further evaluation. He will return for any worsening of his current condition or new/concerning symptoms. Based on the patient's presentation, lab results, and imaging studies, I feel the patient is stable for outpatient treatment. Discharge instructions were reviewed with the patient. The patient verbalized understanding of my assessment and treatment plan and was discharged home in good condition. Impression Primary Impression: Headache Departure Information Dispostion Home / Self-Care Condition GOOD Prescriptions Methylprednisolone (MEDROL DOSEPAK) 4 Mg Cameron 0 PO DAILY, #1 PKT Prov: Latonya Parish .PROMISE 01/23/17 Amoxicillin & Pot Clavulanate (Augmentin 875-125 mg) 1 Tab Tab 1 TAB PO BID for 10 Days, #20 TAB Prov: Latonya Parish PA-C 01/23/17 Referrals No Doctor, Assigned (PCP) Patient Instructions My [facility] Additional Instructions You were prescribed Augmentin to be taken twice daily as prescribed. This is an antibiotic. All antibiotics have the potential to cause diarrhea. Stop this medication and contact a medical provider if you were to develop any significant adverse side effects including: wheezing, shortness of breath, passing out, vomiting, or a diffuse rash. Always take antibiotics as directed and COMPLETE the ENTIRE course regardless of the improvement of your symptoms. You have been prescribed a Medrol Dosepak. This is a steroid which will help decrease your inflammation, redness, and itch. Take the medicine as prescribed. Take the ENTIRE 6 day course of the steroids. For pain control, you can use the following [id number] medicines (if >12 yo): - Regular strength (325mg/tab) Tylenol (acetaminophen) 2 tabs every 4-6 hours as needed. Do not exceed 12 tablets in a 24 hour period. Avoid taking more than 4 grams (4000 mg) of Tylenol per day. This includes any other sources of acetaminophen you may take on a regular basis. - Regular strength (200 mg/tab) Advil (ibuprofen) 1-2 tabs every 4-6 hours as needed. Do not exceed a dose of 3200 mg per day. Follow-up with your family doctor within one week. Return to the emergency department with worsening headache, neck pain/stiffness , fevers or any other new/concerning symptoms. Problem Qualifiers Primary Impression: Headache Headache type: unspecified Headache chronicity pattern: acute headache Intractability: not intractable Qualified Codes: R51 - Headache
[2017-01-23 19:16] VITALS: BP 111/60; PULSE 68; O2SAT 98
[2017-02-15] MEDS ORDERED: QUET1TAB32 PO (15:43)
[2017-02-15] MEDS ORDERED: ZLF/100 PO (15:43)
== END 2017-01-23 19:17 | disposition home or self-care (01) ==
LOC: C.EDB 16:39
DX: R51 Headache (principal); R42 Dizziness and giddiness; R11.10 Vomiting, unspecified; Z87.891 Personal history of nicotine dependence

== ENCOUNTER 2017-02-15 21:10 | Emergency (ER) | payer BC ==
[~2017-02-15] VITALS: Ht 170.2 cm; Wt 70.3 kg
[~2017-02-15 21:10] MED LIST changes: -HYDR2.5C37 TOP; -NRN100 PO; +QUET1TAB32 PO; +ZLF/100 PO
[2017-02-15 21:14] VITALS: TEMP 36.7; Ht 170.2 cm; Wt 70.3 kg
[2017-02-15 23:42] VITALS: BP 136/80; PULSE 84; O2SAT 97
--- NOTE | 2017-02-16 00:54 | EMERGENCY ROOM VISIT NOTE ---
History Report prepared by Estella: Juanita Acosta Under the Supervision of: Dr. Rodolfo Portillo D.O. 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 He states that he started having chest congestion 4 days ago along with a productive cough with yellow to green phlegm. The patient states that he still has nasal congestion and a sore throat. He states that his sore throat is worse in the morning, when he wakes up and gets better with drinking throughout the day. The patient states that he has tightness in his chest when he does work which he states it feels like typical asthma. The patient denies any fevers, numbness or weakness but states he has tingling sensations in his fingertips bilaterally intermittently. The patient states he was prescribed a prescription last time he was here but states he never had it filled. The patient states that he has had blurry vision when he takes rapid deep breaths. The patient states that he uses an exercise inhaler when he is active or sick. He states that he also has history of bronchitis and usually gets it several times a year. Denies history of diabetes , hypertension, hyperlipidemia, or CAD. 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 nasal congestion Review of Systems See HPI for pertinent positives & negatives. A total of 10 systems reviewed and were otherwise negative. Past Medical & Surgical Medical Problems: (1) Abdominal pain, acute (2) Abdominal pain, acute (3) Anxiety (4) Asthma (5) Asthma exacerbation (6) Back strain (7) Bacterial pneumonia (8) Bronchitis (9) Depression (10) Hand laceration (11) Mood disorder (12) Nausea (13) PNA (pneumonia) (14) Severe gingivitis (15) Suicidal ideation Surgical Problems: (1) S/P tonsillectomy and adenoidectomy Family History Diabetes mellitus FH: cancer Hypertension Social History Smoking Status: Current Every Day Smoker Alcohol Use: none Drug Use: marijuana Marital Status: in relationship Housing Status: lives with family Occupation Status: employed Current/Historical Medications Scheduled Sertraline HCl (Sertraline HCl), 100 MG PO DAILY Scheduled PRN Quetiapine Fumarate (Seroquel), 50 MG PO HS PRN for Sleep Allergies Coded Allergies: No Known Allergies (Unverified , 01/23/17) Physical Exam Vital Signs Date Time Temp Pulse Resp B/P Pulse Ox O2 Delivery O2 Flow Rate FiO2 02/15/17 23:42 84 18 136/80 97 02/15/17 21:14 36.7 89 18 138/83 98 Room Air Physical Exam GENERAL:sitting up in bed. talking normally, alert, well appearing, well nourished, no distress, non-toxic EYE EXAM: normal conjunctiva OROPHARYNX: no exudate, no erythema, lips, buccal mucosa, and tongue normal and mucous membranes are moist NECK: supple, no nuchal rigidity, no adenopathy, non-tender LUNGS: Clear to auscultation. Normal chest wall mechanics HEART: no murmurs, S1 normal and S2 normal ABDOMEN: abdomen soft, non-tender, normo-active bowel sounds, no masses, no rebound or guarding. BACK: Back is symmetrical on inspection and there is no deformity, no midline tenderness, no CVA tenderness. SKIN: no rashes and no bruising UPPER EXTREMITIES: upper extremities are grossly normal. LOWER EXTREMITIES: No pitting edema. NEURO EXAM: Normal sensorium, cranial nerves II-XII intact, normal speech, no weakness of arms, no weakness of legs. Drift and finger to nose intact Medical Decision & Procedures ER Provider Diagnostic Interpretation: XRAY: Chest: A one view portable study was reviewed by me: No focal infiltration No pneumothorax. ECG Indication: SOB/dyspnea Rate (beats per minute): 70 Rhythm: sinus rhythm Findings: other (normal axis, normal intervals. ) ED Course ED COURSE: Vital signs were reviewed and showed normal vitals The patients medical record was reviewed The above diagnostic studies were performed and reviewed. ED treatments and interventions as stated above. 2222: The patient was evaluated in room A3. A complete history and physical examination was performed. 2310: Upon reevaluation, the patient is resting comfortably.I discussed my findings with the patient and he understands and agrees with the treatment plan. The patient has a follow up appointment with his PCP on Saturday. Based on the patients age, coexisting illnesses, exam and lab findings the decision to treat as an outpatient was made.The patient remained stable while under my care.The patient appeared well at the time of discharge. Medical Decision Differential diagnoses includes but is not limited to pneumonia, bronchitis, COPD/Asthma exacerbation, pneumothorax, pulmonary embolism, congestive heart failure, acute coronary syndrome Patient is a 26-year-old male who presents the ER for a green productive cough along with congestion and some mild shortness of breath. He also admits to runny nose and a sore throat which improves throughout the day. Chest x-ray shows no focal infiltrate. EKG was unremarkable. Based on symptoms I do believe that this likely viral. He has an appointment with his PCP on Saturday. I favors holding on antibiotics and discussed this with him at length. He'll follow with his PCP on Saturday for further evaluation. He has had no fevers. He is otherwise well-appearing and was discharged follow-up with his PCP. Discussed with Pt concerning signs and symptoms to watch out for. Pt was instructed to follow up with their PCP and discussed with the patient their option to return to the ED at anytime for persistent or worsening symptoms. The appropriate anticipatory guidance and out-patient management, including indications for return to the emergency department, were explained at length to the patient and understood. Impression Primary Impression: Bronchitis Scribe Attestation The scribe's documentation has been prepared under my direction and personally reviewed by me in its entirety. I confirm that the note above accurately reflects all work, treatment, procedures, and medical decision making performed by me. Departure Information Dispostion Home / Self-Care Referrals No Doctor, Assigned (PCP) Forms HOME CARE DOCUMENTATION FORM, IMPORTANT VISIT INFORMATION Patient Instructions My [facility] Additional Instructions Please follow up with your primary care doctor with in the next 24 hours. Any worsening of your symptoms, please return to the ED immediately. This includes fevers greater than 100.4, passing out, chest pain, worsening shortness of breath, or any other concerning signs or symptoms from your standpoint.
--- NOTE | 2017-02-16 08:16 | DIAGNOSTIC IMAGING REPORT ---
CHEST ONE VIEW PORTABLE HISTORY: cough COMPARISON: Chest 11/16/2016. FINDINGS: The lungs are clear. Cardiac silhouette is normal in size. No pleural effusions. No pneumothorax. IMPRESSION: No acute process. Electronically signed by: Ronnie Caldwell M.D. 02/16/2017 8:15 AM Dictated Date/Time: 02/16/2017 8:14 AM
== END 2017-02-15 23:43 | disposition home or self-care (01) ==
LOC: C.EDB 21:11 → C.EDA 23:43
DX: J45.909 Unspecified asthma, uncomplicated (principal); F32.9 Major depressive disorder, single episode, unspecified; F17.200 Nicotine dependence, unspecified, uncomplicated; Z87.01 Personal history of pneumonia (recurrent); Z90.89 Acquired absence of other organs; Z83.3 Family history of diabetes mellitus; Z82.49 Family history of ischemic heart disease and other diseases of the circulatory system; Z79.899 Other long term (current) drug therapy

== ENCOUNTER 2017-07-10 08:24 | Emergency (ER) | payer BC ==
[~2017-07-10] VITALS: Ht 170.2 cm; Wt 79.0 kg
[~2017-07-10 08:24] MED LIST changes: -ONDA4TAB10 SL
[2017-07-10 08:27] VITALS: TEMP 36.8; Ht 170.2 cm; Wt 79.0 kg
[2017-07-10] MEDS ORDERED: MoRPHine SULFATE 10 MG/ML CARP/VIAL IV STA (08:48)
[2017-07-10] MEDS ORDERED: SODIUM CHLORIDE 0.9% 1000ML 1,000 ML IV STA (08:48)
[2017-07-10] MEDS ORDERED: ONDANSETRON INJ 2 MG/ML 2 ML VIAL IV STA (08:48)
[2017-07-10 08:59] VITALS: O2SAT 100
[2017-07-10 09:03] LABS: BASO % 0.6 %; BASO ABS # 0.06 K/uL (0-0.2); COMPLETE YES; EOS % 2.3 %; HEMATOCRIT 45.5 % (42-52); IG% 0.2 %; LYMPH % 35.4 %; LYMPH ABS # 3.49 K/uL (1.2-3.4); MEAN CELL VOLUME 84.7 fL (80-100); MEAN CORPUSCULAR HGB CONC 35.4 g/dl (32-36); MEAN PLATELET VOLUME 11.3 fL (7.4-10.4); NEUT % 54.5 %; PLATELET COUNT 232 K/uL (130-400); RED BLOOD COUNT 5.37 M/uL (4.7-6.1); WHITE BLOOD COUNT 9.85 K/uL (4.8-10.8)
[2017-07-10 09:26] LABS: URINE APPEARANCE CLEAR (CLEAR); URINE BILIRUBIN NEG (NEG); URINE COLOR YELLOW; URINE EPITHELIAL CELL AUTO 0-5 /lpf (0-5); URINE NITRITE NEG (NEG); URINE SPECIFIC GRAVITY 1.018 (1.000-1.030); UROBILINOGEN NEG (NEG); ZZUR CULT IF INDIC CLEAN CATCH YES
[2017-07-10 09:27] LABS: MANUAL MICROSCOPIC REQUIRED? NO; REVIEW REQ? NO
--- NOTE | 2017-07-10 09:32 | DIAGNOSTIC IMAGING REPORT ---
ABDOMEN 2VIEW W/PA CHEST RTN CLINICAL HISTORY: 26 years-old Male presenting with Abdominal pain. TECHNIQUE: PA view of the chest and supine and upright views of the abdomen were obtained. COMPARISON: 02/15/2017. FINDINGS: Cardiomediastinal silhouette normal. Lungs and pleural spaces clear. Moderate stool burden in the right colon. No evidence of free intraperitoneal gas, pneumatosis, or portal venous gas. No calcifications project over the renal shadows allowing for the presence of gas and stool. Calcification in the left hemipelvis is consistent with the phlebolith noted on prior CT from 11/16/2016. Osseous structures normal. IMPRESSION: 1. No acute cardiopulmonary disease. 2. No acute intra-abdominal pathology. 3. Moderate stool burden in the right colon. Electronically signed by: Davi Fulton M.D. 07/10/2017 9:31 AM Dictated Date/Time: 07/10/2017 9:29 AM
[2017-07-10] MEDS ORDERED: PROMETHAZINE HCL INJ 12.5 MG in SODIUM CHLORIDE 0.9% 50ML 50 ML IV STA (09:35)
[2017-07-10 09:40] LABS: ALB/GLOB RATIO 1.2 (0.9-2); ALKALINE PHOSPHATASE 55 U/L (45-117); ALT/SGPT 25 U/L (12-78); BLOOD UREA NITROGEN 21 mg/dl (7-18); BUN/CREATININE RATIO 21.4 (10-20); CALCIUM 9.5 mg/dl (8.5-10.1); CARBON DIOXIDE 23 mmol/L (21-32); CHLORIDE 109 mmol/L (98-107); CREATININE 0.99 mg/dl (0.60-1.40); GLUCOSE 91 mg/dl (70-99)
[2017-07-10 09:43] LABS: POTASSIUM 4.7 mmol/L (3.5-5.1); SODIUM 139 mmol/L (136-145)
[2017-07-10 09:47] LABS: AST/SGOT 18 U/L (15-37); MAGNESIUM 1.8 mg/dl (1.8-2.4)
--- NOTE | 2017-07-10 10:44 | EMERGENCY ROOM VISIT NOTE ---
History First contact with patient: 08:32 Chief Complaint: ABDOMINAL PAIN Stated Complaint: STOMACH/BACK PAIN, HARD BREATHING, CHEST PAIN Nursing Triage Summary: pt reports mid abd pain nausea, vomitting, diarrhea. pt reports "it feels like it did when i had food poisoning in the past. pt reports "i am just so uncomfortable." History of Present Illness The patient is a 26 year old male who presents to the Emergency Room with complaints of "stomach/back pain, or breathing, chest pain". The patient states that he awoke this morning from sleep, from what he believes was a nightmare, and was soaked in sweat. He states that he developed. Buccal abdominal discomfort, and has been tossing and turning in bed. He feels exactly like it in the past when he had gastroenteritis. He rates the pain as an 8/10. He states that he ate pizza last night, as did the female in the room but denies similar symptoms. He has associated diarrhea. He also has some dry heaving. There is associated nausea. He denies any antibiotics recently. He denies any chest pain or shortness of breath. Review of Systems A complete 10-point Review of Systems was discussed with the patient, with pertinent positives and negatives listed in the History of Present Illness. All remaining Review of Systems questions can be considered negative unless otherwise specified. Past Medical/Surgical History Medical Problems: (1) Abdominal pain, acute (2) Abdominal pain, acute (3) Anxiety (4) Asthma (5) Asthma exacerbation (6) Back strain (7) Bacterial pneumonia (8) Bronchitis (9) Depression (10) Hand laceration (11) Mood disorder (12) Nausea (13) PNA (pneumonia) (14) Severe gingivitis (15) Suicidal ideation Surgical Problems: (1) S/P tonsillectomy and adenoidectomy Family History Diabetes mellitus FH: cancer Hypertension Social History Smoking Status: Current Every Day Smoker Alcohol Use: none Drug Use: marijuana Marital Status: in relationship Housing Status: lives with family Occupation Status: employed Current/Historical Medications Scheduled Ondasetron Odt (Zofran Odt), 4 MG SL Q6H Physical Exam Vital Signs Date Time Temp Pulse Resp B/P (MAP) Pulse Ox O2 Delivery O2 Flow Rate FiO2 07/10/17 11:07 52 16 139/88 99 07/10/17 10:28 56 18 145/91 97 Room Air 07/10/17 09:37 66 07/10/17 09:36 69 18 148/86 96 Room Air 07/10/17 08:59 100 Room Air 07/10/17 08:59 70 24 139/86 99 Room Air 07/10/17 08:27 36.8 77 20 174/105 100 Room Air Physical Exam VITAL SIGNS - Vital signs and nursing notes were reviewed. Stable. GENERAL - 26-year-old male appearing his stated age who is in no acute distress but anxious. Communicates well with provider and answers questions appropriately. SKIN - Without rashes. HEAD - NC/AT. EYES - Sclera anicteric. EARS - No deformities of external structures noted on gross examination bilaterally. NOSE - Midline and without cyanosis. No epistaxis or purulent drainage noted. MOUTH/OROPHARYNX - Without perioral cyanosis. LUNGS - Chest wall symmetric without accessory muscle use, intercostals retractions, or central cyanosis. Normal vesicular breath sounds CTA B/L. No wheezes, rales, or rhonchi appreciated. CARDIAC - RRR with S1/S2. No murmur, rubs, or gallops appreciated. ABDOMEN - Abdominal contour without pulsations or visible masses. BS normoactive all four quadrants. Diffuse periumbilical abdominal pain. No palpable masses, hepatosplenomegaly, or ascites noted. EXTREMITIES - No clubbing or peripheral cyanosis. No pretibial edema present. NEUROLOGIC - Cranial nerves II through XII grossly intact. PSYCH - A&O, and cooperates fully with examiner. Pt is very pleasant and interacts well with examiner. Medical Decision & Procedures ER Provider Diagnostic Interpretation: [~ rep ct add3]] ABDOMEN 2VIEW W/PA CHEST RTN CLINICAL HISTORY: 26 years-old Male presenting with Abdominal pain. TECHNIQUE: PA view of the chest and supine and upright views of the abdomen were obtained. COMPARISON: 02/15/2017. FINDINGS: Cardiomediastinal silhouette normal. Lungs and pleural spaces clear. Moderate stool burden in the right colon. No evidence of free intraperitoneal gas, pneumatosis, or portal venous gas. No calcifications project over the renal shadows allowing for the presence of gas and stool. Calcification in the left hemipelvis is consistent with the phlebolith noted on prior CT from 11/16/2016. Osseous structures normal. IMPRESSION: 1. No acute cardiopulmonary disease. 2. No acute intra-abdominal pathology. 3. Moderate stool burden in the right colon. Electronically signed by: Davi Fulton M.D. 07/10/2017 9:31 AM Dictated Date/Time: 07/10/2017 9:29 AM Laboratory Results 07/10/17 08:44 Red Blood Count 5.37, Mean Corpuscular Volume 84.7, Mean Corpuscular Hemoglobin 30.0, Mean Corpuscular Hemoglobin Concent 35.4, Mean Platelet Volume 11.3, Neutrophils (%) (Auto) 54.5, Lymphocytes (%) (Auto) 35.4, Monocytes (%) (Auto) 7.0, Eosinophils (%) (Auto) 2.3, Basophils (%) (Auto) 0.6, Neutrophils # (Auto) 5.36, Lymphocytes # (Auto) 3.49, Monocytes # (Auto) 0.69, Eosinophils # (Auto) 0.23, Basophils # (Auto) 0.06 07/10/17 08:44 Test 07/10/17 08:44 07/10/17 09:09 White Blood Count 9.85 K/uL (4.8-10.8) Red Blood Count 5.37 M/uL (4.7-6.1) Hemoglobin 16.1 g/dL (14.0-18.0) Hematocrit 45.5 % (42-52) Mean Corpuscular Volume 84.7 fL (80-100) Mean Corpuscular Hemoglobin 30.0 pg (25-34) Mean Corpuscular Hemoglobin Concent 35.4 g/dl (32-36) Platelet Count 232 K/uL (130-400) Mean Platelet Volume 11.3 fL (7.4-10.4) Neutrophils (%) (Auto) 54.5 % Lymphocytes (%) (Auto) 35.4 % Monocytes (%) (Auto) 7.0 % Eosinophils (%) (Auto) 2.3 % Basophils (%) (Auto) 0.6 % Neutrophils # (Auto) 5.36 K/uL (1.4-6.5) Lymphocytes # (Auto) 3.49 K/uL (1.2-3.4) Monocytes # (Auto) 0.69 K/uL (0.11-0.59) Eosinophils # (Auto) 0.23 K/uL (0-0.5) Basophils # (Auto) 0.06 K/uL (0-0.2) RDW Standard Deviation 39.2 fL (36.4-46.3) RDW Coefficient of Variation 12.8 % (11.5-14.5) Immature Granulocyte % (Auto) 0.2 % Immature Granulocyte # (Auto) 0.02 K/uL (0.00-0.02) Anion Gap 7.0 mmol/L (3-11) Est Creatinine Clear Calc Drug Dose 106.7 ml/min Estimated GFR () 122.2 Estimated GFR (Non- 105.4 BUN/Creatinine Ratio 21.4 (10-20) Calcium Level 9.5 mg/dl (8.5-10.1) Magnesium Level 1.8 mg/dl (1.8-2.4) Total Bilirubin 0.1 mg/dl (0.2-1) Aspartate Amino Transf (AST/SGOT) 18 U/L (15-37) Alanine Aminotransferase (ALT/SGPT) 25 U/L (12-78) Alkaline Phosphatase 55 U/L (45-117) Troponin I < 0.015 ng/ml (0-0.045) Total Protein 7.5 gm/dl (6.4-8.2) Albumin 4.0 gm/dl (3.4-5.0) Globulin 3.5 gm/dl (2.5-4.0) Albumin/Globulin Ratio 1.2 (0.9-2) Lipase 319 U/L (73-393) Thyroid Stimulating Hormone (TSH) 1.360 uIu/ml (0.300-4.500) Urine Color YELLOW Urine Appearance CLEAR (CLEAR) Urine pH 7.0 (4.5-7.5) Urine Specific Mora 1.018 (1.000-1.030) Urine Protein NEG (NEG) Urine Glucose (UA) NEG (NEG) Urine Ketones NEG (NEG) Urine Occult Blood NEG (NEG) Urine Nitrite NEG (NEG) Urine Bilirubin NEG (NEG) Urine Urobilinogen NEG (NEG) Urine Leukocyte Esterase SMALL (NEG) Urine WBC (Auto) 10-30 /hpf (0-5) Urine RBC (Auto) 0-4 /hpf (0-4) Urine Hyaline Casts (Auto) 0 /lpf (0-5) Urine Epithelial Cells (Auto) 0-5 /lpf (0-5) Urine Bacteria (Auto) NEG (NEG) Medications Administered Medications (Trade) Dose Ordered Sig/Dylan Route Start Time Stop Time Status Last Admin Dose Admin Sodium Chloride 1,000 ml @ 999 mls/hr Q1H1M STAT IV 07/10/17 08:48 07/10/17 09:48 DC 07/10/17 08:53 999 MLS/HR Morphine Sulfate (MoRPHine SULFATE INJ) 8 mg NOW STAT IV 07/10/17 08:48 07/10/17 08:49 DC 07/10/17 08:54 8 MG Ondansetron HCl (Zofran Inj) 4 mg NOW STAT IV 07/10/17 08:48 07/10/17 08:49 DC 07/10/17 08:53 4 MG Promethazine HCl 12.5 mg/Sodium Chloride 50.5 ml @ 204 mls/hr NOW STAT IV 07/10/17 09:35 07/10/17 09:49 DC 07/10/17 09:50 204 MLS/HR Medical Decision Patient was seen and evaluated as above. Previous visits were extensively reviewed. He has had a CT scan of the abdomen and pelvis performed back in October when he had similar symptoms. It was consistent with gastroenteritis. His examination today and subjective history is also consistent with gastroenteritis. I do not believe that repeat CT scan is warranted, and believe that the risks outweigh the benefits. Plain radiographs were obtained with results as above. No acute process. He was given morphine for pain. White count normal. He is hemodynamically stable. Metabolic panel reveals no evidence of renal or liver failure. Lipase is normal. TSH remarkable. Troponin negative. EKG somewhat to previous. BUN slightly high at 21. I do not suspect UTI. He was given Phenergan, Zofran and fluids here. Another round of morphine. He is reevaluated and feeling much better. He states he feels exactly to when he had gastroenteritis before. He'll be treated conservatively, and given a short course of Zofran. He is to follow his family doctor, and return with worsening. He was educated upon management, educated upon worrisome symptoms which to return, had questions or dish, and was discharged home in good condition. In evaluation treatment this patient following differential diagnoses were entertained: Gastroenteritis, cholelithiasis, appendicitis, among others. Impression Primary Impression: Acute gastroenteritis Departure Information Dispostion Home / Self-Care Condition GOOD Prescriptions Ondasetron Odt (ZOFRAN ODT) 4 Mg Tab 4 MG SL Q6H for Nausea, #15 TAB Prov: Spencer Finch PA-C 07/10/17 Referrals Dejon Kearney D.O. (PCP) Forms HOME CARE DOCUMENTATION FORM, IMPORTANT VISIT INFORMATION Patient Instructions My [facility] Additional Instructions You have been treated in the Emergency Department your Abdominal Pain. Laboratory results and imaging studies have ruled out any emergent causes for your abdominal pain which would warrant admission or surgery. No driving today as you've received pain medications which would make this illegal. You have been prescribed Zofran to be used for any nausea or vomiting. Take as prescribed. For pain control, you can use the following [id number] medicines (if >12 yo): - Regular strength (325mg/tab) Tylenol (acetaminophen) 1-2 tabs every 4-6 hours as needed. Do not exceed 12 tablets in a 24 hour period. Avoid taking more than 3 grams (3000 mg) of Tylenol per day. This includes any other sources of acetaminophen you may take on a regular basis. - Regular strength (200 mg/tab) Advil (ibuprofen) 1-2 tabs every 4-6 hours as needed. Do not exceed a dose of 3200 mg per day. Drink plenty of water and stay well hydrated. As with any trip to the Emergency Department, you should follow-up with your Primary Care Provider from today's visit. Return to the emergency department if your symptoms persist despite treatment plan outlined above or if the following symptoms occur: increased fevers, chills , worsening nausea/vomiting, blood in your stool or urine. Please return with any new/concerning symptoms.
[2017-07-10] MEDS ORDERED: ONDA4TAB10 SL (10:58)
[2017-07-10 11:07] VITALS: BP 139/88; PULSE 52; O2SAT 99
== END 2017-07-10 11:08 | disposition home or self-care (01) ==
LOC: C.EDB 08:26 → C.EDA 11:08
DX: K52.9 Noninfective gastroenteritis and colitis, unspecified (principal); F41.9 Anxiety disorder, unspecified; J45.909 Unspecified asthma, uncomplicated; F32.9 Major depressive disorder, single episode, unspecified; F17.200 Nicotine dependence, unspecified, uncomplicated; Z98.890 Other specified postprocedural states

== ENCOUNTER 2017-07-19 12:34 | Emergency (ER) | payer BC ==
[~2017-07-19] VITALS: Ht 170.2 cm; Wt 77.1 kg
[~2017-07-19 12:34] MED LIST changes: +ONDA4TAB10 SL; -QUET1TAB32 PO; -ZLF/100 PO
[2017-07-19 12:56] VITALS: TEMP 36.9; Ht 170.2 cm; Wt 77.1 kg
[2017-07-19 13:41] LABS: BASO % 0.1 %; BASO ABS # 0.02 K/uL (0-0.2); COMPLETE YES; EOS % 0.8 %; IG% 0.4 %; LYMPH % 15.4 %; MEAN CELL VOLUME 83.5 fL (80-100); MEAN CORPUSCULAR HEMOGLOBIN 30.1 pg (25-34); MONO % 8.5 %; NEUT % 74.8 %; PLATELET COUNT 180 K/uL (130-400); RED BLOOD COUNT 4.79 M/uL (4.7-6.1); WHITE BLOOD COUNT 14.96 K/uL (4.8-10.8)
--- NOTE | 2017-07-19 13:46 | DIAGNOSTIC IMAGING REPORT ---
CHEST 2 VIEWS ROUTINE CLINICAL HISTORY: 26 years-old Male presenting with Cough, possible pnx. TECHNIQUE: PA and lateral views of the chest were obtained. COMPARISON: 07/10/2017. FINDINGS: Cardiomediastinal silhouette normal. Lungs and pleural spaces clear. Osseous structures normal. Upper abdomen normal. IMPRESSION: 1. No acute cardiopulmonary disease. No pneumothorax. Electronically signed by: Davi Fulton M.D. 07/19/2017 1:45 PM Dictated Date/Time: 07/19/2017 1:44 PM
[2017-07-19] MEDS ORDERED: ALBUT/IPRATROP 3MG/0.5MG NEB 3 ML VIAL INH STA ×2 (13:58→14:37)
[2017-07-19 14:00] LABS: BUN/CREATININE RATIO 17.1 (10-20); CALCIUM 9.2 mg/dl (8.5-10.1); POTASSIUM 4.1 mmol/L (3.5-5.1)
[2017-07-19 14:03] LABS: ALB/GLOB RATIO 1.1 (0.9-2)
--- NOTE | 2017-07-19 14:03 | EMERGENCY ROOM VISIT NOTE ---
History First contact with patient: 13:42 Chief Complaint: COUGH Stated Complaint: BRONCHITIS, SEVERE CARR, HARD TO BREATH Nursing Triage Summary: Pt states cough of prod green sputum, h/a, b/l ear pain worse on left. Seen at [facility] last night and dx with an ear infection and bronchitis. Started on Amoxicillin and Prednisone. States he is not feeling any better. Sx x 4 days. History of Present Illness The patient is a 26 year old male who presents to the Emergency Room with complaints of cough and chest tightness. The patient states that for the past few days, he has had tightness in his chest, coughing and wheezing. He was seen at [facility] yesterday and diagnosed with an ear infection of the left ear and bronchitis. He was prescribed prednisone and amoxicillin. He has been taking this but states he is feeling no better. He went to work and states that he felt very fatigued and like he was going to pass out. He was unable to work due to the symptoms. He reports a headache which is associated with a cough and hurts worse when he coughs. The patient has a history of asthma and does have an inhaler at home which she has been using without relief. He used a friend's nebulizer treatment last night and states this did help him. He does not have a nebulizer at home. He reports pressure in both of his ears. He denies sore throat, abdominal pain, neck pain/stiffness or fever. Review of Systems A complete 10 point review of systems was reviewed with the patient with pertinent positives and negatives as per history of present illness. All else were negative. Past Medical/Surgical History Medical Problems: (1) Abdominal pain, acute (2) Abdominal pain, acute (3) Anxiety (4) Asthma (5) Asthma exacerbation (6) Back strain (7) Bacterial pneumonia (8) Bronchitis (9) Depression (10) Hand laceration (11) Mood disorder (12) Nausea (13) PNA (pneumonia) (14) Severe gingivitis (15) Suicidal ideation Surgical Problems: (1) S/P tonsillectomy and adenoidectomy Family History Diabetes mellitus FH: cancer Hypertension Social History Smoking Status: Current Every Day Smoker Alcohol Use: none Drug Use: marijuana Marital Status: in relationship Housing Status: lives with family Occupation Status: employed Current/Historical Medications Scheduled Amoxicillin & Pot Clavulanate (Augmentin 875-125 mg), 1 TAB PO BID Prednisone (Prednisone), 1 TAB PO UD Scheduled PRN Albuterol Hfa (Ventolin Hfa), 2-4 PUFFS INH Q6H PRN for SOB/Wheezing Physical Exam Vital Signs Date Time Temp Pulse Resp B/P (MAP) Pulse Ox O2 Delivery O2 Flow Rate FiO2 07/19/17 15:38 101 20 107/66 98 07/19/17 14:25 101 20 114/68 99 Room Air 07/19/17 12:56 36.9 90 18 126/78 99 Room Air Physical Exam VITALS: Vitals are noted on the nurse's note and reviewed by myself. Vital signs stable. GENERAL: This is a 26-year-old male, in no acute distress, nondiaphoretic, well- developed well-nourished. SKIN: The skin was without rashes. EARS: External auditory canals clear, tympanic membranes pearly bansal without erythema or effusion bilaterally. EYES: Pupils equal round and reactive to light and accommodation. Conjunctivae without injection, sclerae without icterus. NOSE: Patent, turbinates without inflammation or discharge. MOUTH: Mucous membranes moist. Tonsils are not enlarged. Pharynx without erythema or exudate. NECK: Supple without nuchal rigidity. No lymphadenopathy. HEART: Regular rate and rhythm without murmurs gallops or rubs. LUNGS: Expiratory and a tray wheezes throughout all lung felder. No retractions or accessory muscle use. NEURO: Patient was alert and oriented to person place and time. Medical Decision & Procedures ER Provider Diagnostic Interpretation: CHEST 2 VIEWS ROUTINE CLINICAL HISTORY: 26 years-old Male presenting with Cough, possible pnx. TECHNIQUE: PA and lateral views of the chest were obtained. COMPARISON: 07/10/2017. FINDINGS: Cardiomediastinal silhouette normal. Lungs and pleural spaces clear. Osseous structures normal. Upper abdomen normal. IMPRESSION: 1. No acute cardiopulmonary disease. No pneumothorax. Laboratory Results 07/19/17 13:20 Red Blood Count 4.79, Mean Corpuscular Volume 83.5, Mean Corpuscular Hemoglobin 30.1, Mean Corpuscular Hemoglobin Concent 36.0, Mean Platelet Volume 11.0, Neutrophils (%) (Auto) 74.8, Lymphocytes (%) (Auto) 15.4, Monocytes (%) (Auto) 8.5, Eosinophils (%) (Auto) 0.8, Basophils (%) (Auto) 0.1, Neutrophils # (Auto) 11.19, Lymphocytes # (Auto) 2.30, Monocytes # (Auto) 1.27, Eosinophils # (Auto) 0.12, Basophils # (Auto) 0.02 07/19/17 13:20 Test 07/19/17 13:15 07/19/17 13:20 Influenza Type A Antigen Neg for Influ A (NEG) Influenza Type B Antigen Neg for Influ B (NEG) White Blood Count 14.96 K/uL (4.8-10.8) Red Blood Count 4.79 M/uL (4.7-6.1) Hemoglobin 14.4 g/dL (14.0-18.0) Hematocrit 40.0 % (42-52) Mean Corpuscular Volume 83.5 fL (80-100) Mean Corpuscular Hemoglobin 30.1 pg (25-34) Mean Corpuscular Hemoglobin Concent 36.0 g/dl (32-36) Platelet Count 180 K/uL (130-400) Mean Platelet Volume 11.0 fL (7.4-10.4) Neutrophils (%) (Auto) 74.8 % Lymphocytes (%) (Auto) 15.4 % Monocytes (%) (Auto) 8.5 % Eosinophils (%) (Auto) 0.8 % Basophils (%) (Auto) 0.1 % Neutrophils # (Auto) 11.19 K/uL (1.4-6.5) Lymphocytes # (Auto) 2.30 K/uL (1.2-3.4) Monocytes # (Auto) 1.27 K/uL (0.11-0.59) Eosinophils # (Auto) 0.12 K/uL (0-0.5) Basophils # (Auto) 0.02 K/uL (0-0.2) RDW Standard Deviation 39.2 fL (36.4-46.3) RDW Coefficient of Variation 13.0 % (11.5-14.5) Immature Granulocyte % (Auto) 0.4 % Immature Granulocyte # (Auto) 0.06 K/uL (0.00-0.02) Anion Gap 5.0 mmol/L (3-11) Est Creatinine Clear Calc Drug Dose 105.6 ml/min Estimated GFR () 120.7 Estimated GFR (Non- 104.1 BUN/Creatinine Ratio 17.1 (10-20) Calcium Level 9.2 mg/dl (8.5-10.1) Total Bilirubin 0.5 mg/dl (0.2-1) Aspartate Amino Transf (AST/SGOT) 21 U/L (15-37) Alanine Aminotransferase (ALT/SGPT) 25 U/L (12-78) Alkaline Phosphatase 61 U/L (45-117) Total Protein 7.5 gm/dl (6.4-8.2) Albumin 3.9 gm/dl (3.4-5.0) Globulin 3.6 gm/dl (2.5-4.0) Albumin/Globulin Ratio 1.1 (0.9-2) Medications Administered Medications (Trade) Dose Ordered Sig/Dylan Route Start Time Stop Time Status Last Admin Dose Admin Albuterol/ Ipratropium (Duoneb) 3 ml NOW STAT INH 07/19/17 13:58 07/19/17 13:59 DC 07/19/17 14:03 3 ML Albuterol/ Ipratropium (Duoneb) 3 ml NOW STAT INH 07/19/17 14:37 07/19/17 14:39 DC 07/19/17 14:51 3 ML Acetaminophen (Tylenol Tab) 1,000 mg NOW STAT PO 07/19/17 14:37 07/19/17 14:39 DC 07/19/17 14:52 1,000 MG Methylprednisolone Sodium Succinate (Solu-Medrol IV) 125 mg NOW STAT IV 07/19/17 14:37 07/19/17 14:39 DC 07/19/17 14:51 125 MG ED Course The patient was evaluated as above. Labs were drawn and IV access was obtained. Patient was medicated with a DuoNeb treatment. He was given Toradol for headache and IV Solu-Medrol. Chest x-ray was performed and read by radiology as above. Patient was reevaluated and stated he felt much better. Findings were discussed with the patient. Discharge instructions were reviewed with the patient. The patient verbalized understanding of my assessment and treatment plan and was discharged home in good condition. Medical Decision Differential diagnosis includes bronchitis, pneumonia, influenza, asthma exacerbation, COPD exacerbation, among others. The patient is a 26-year-old male who presents today complaining of cough and shortness of breath. Patient was diagnosed with bronchitis by an urgent care and started on an antibiotic and steroid. Labs today revealed a leukocytosis which is likely secondary to the steroid he is taking. Influenza testing was negative. Chest x-ray showed no evidence of pneumonia. He was given a dose of IV steroids and a DuoNeb treatment with some relief of his symptoms. He was advised to use [id number] medications and contact his primary care provider for follow-up. Based on the patient's presentation and work up, I feel the patient is stable for outpatient treatment. The patient was educated to return to the emergency department for any worsening of their current condition or new/concerning symptoms. He will follow up with his PCP. Medication Reconcilliation Current Medication List: was personally reviewed by me Blood Pressure Screening Patient's blood pressure: Normal blood pressure Impression Primary Impression: Upper respiratory infection Departure Information Dispostion Home / Self-Care Condition GOOD Referrals Dejon Kearney, D.O. (PCP) Patient Instructions My [facility] Additional Instructions Continue all medications as prescribed. You may use [id number] treatment such as Mucinex to help with symptoms. Rest and stay well hydrated. Contact your primary care provider about possibly getting a nebulizer to use at home. Follow-up with your primary care provider for a recheck within 1 week. Return here with worsening shortness of breath, high fevers, chest pain, or any other new/concerning symptoms.
[2017-07-19] MEDS ORDERED: VNTHFA/IN INH (14:33)
[2017-07-19] MEDS ORDERED: PRED10TA PO (14:33)
[2017-07-19] MEDS ORDERED: AMOX875T PO (14:33)
[2017-07-19] MEDS ORDERED: ACETAMINOPHEN 500 MG TAB PO STA (14:37)
[2017-07-19] MEDS ORDERED: METHYLPREDNISOLONE 125 MG VIAL IV STA (14:37)
[2017-07-19 15:38] VITALS: BP 107/66; PULSE 101; O2SAT 98
== END 2017-07-19 15:42 | disposition home or self-care (01) ==
LOC: C.EDB 12:36 → C.EDA 15:42
DX: J06.9 Acute upper respiratory infection, unspecified (principal); J45.909 Unspecified asthma, uncomplicated; F41.9 Anxiety disorder, unspecified; F32.9 Major depressive disorder, single episode, unspecified; F17.200 Nicotine dependence, unspecified, uncomplicated; Z98.890 Other specified postprocedural states; Z83.3 Family history of diabetes mellitus; Z80.9 Family history of malignant neoplasm, unspecified; Z82.49 Family history of ischemic heart disease and other diseases of the circulatory system

== ENCOUNTER 2017-12-13 12:48 | Emergency (ER) | payer BC, OTHER ==
[~2017-12-13] VITALS: Ht 170.2 cm; Wt 78.0 kg
[~2017-12-13 12:48] MED LIST changes: +AMOX875T PO; -ONDA4TAB10 SL; +PRED10TA PO; +VNTHFA/IN INH
[2017-12-13 12:54] VITALS: BP 145/91; PULSE 75; TEMP 36.9; O2SAT 98; Ht 170.2 cm; Wt 78.0 kg
--- NOTE | 2017-12-13 13:17 | EMERGENCY ROOM VISIT NOTE ---
ED Visit Note First contact with patient: 12:58 CHIEF COMPLAINT : Sore throat, sinus congestion and ear pain 4 days HISTORY OF PRESENT ILLNESS: Patient is a 27-year-old white male who presents emergency department for evaluation of a sore throat, ear pain and upper respiratory symptoms. His symptoms started about 4 days ago. He reports a progressively worsening sore throat, he is a sensation of a lump in the back of his throat, primarily on the left side that started yesterday. He is also noticed some fullness and popping in his ears, left worse than right, he states that the left ear today when popped, was painful. He notes a stuffy, runny nose and a dry, nonproductive cough. He has not taken any medication for his symptoms, he reports that he is presently without medical insurance. He works in [employer] and reports that he has been around people who have been ill. He has not had a fever. No rash. Denies any posterior neck pain or stiffness. No difficulty breathing. REVIEW OF SYSTEMS: Review of systems as per HPI. All other systems reviewed were negative. At least 6 systems reviewed. PMH: Electronic medical records are reviewed and summarized as above/below. See Problem List. SOCIAL HISTORY: Patient lives at home. Smoker. PHYSICAL EXAM: Vital Signs: Reviewed Nurse's notes. MENTAL STATUS: Well- appearing 27-year-old white male who is awake and alert and in no acute rest. Vital signs are stable. He is afebrile. EARS: Tympanic membranes intact, not inflamed, have normal contour. Scarring is noted, external canals clear. THROAT: The pharynx not inflamed and or swollen. Tonsils are surgically absent. The oropharyngeal airway is patent. Uvula is midline and no abscess is seen. No trismus. NOSE: Nares patent, turbinates edematous and boggy with clear rhinorrhea. SKIN: Clear and dry, no eruptions. No cyanosis, no petechiae. NECK: Supple, without lymphadenopathy. No meningeal signs. HEART: Regular rate and rhythm, with normal S1 and S2, no murmur or gallop or rub is heard. LUNGS: Breath sounds equal and clear to auscultation without wheezes, rales, or rhonchi heard. EMERGENCY DEPARTMENT COURSE: Rapid strep was negative. Backup cultures were sent. The patient was reassured that his illness is likely viral in nature. His throat appears benign, without evidence for abscess. He does have some fullness of the left ear, no obvious effusion, or evidence for infection, and I suspect his symptoms are largely related to a eustachian tube dysfunction. He was encouraged to use [id number] decongestants and medications for pain including Tylenol and ibuprofen. Return to the emergency department if his symptoms are worsening. Medication reconciliation: I attest that I have personally reviewed the patient' s current medication list. Blood pressure screening: Patient was found to have a slightly elevated blood pressure due to circumstances. I do not believe that the patient requires hypertension monitoring. Problem List Medical Problems: (1) Abdominal pain Status: Resolved (2) Abdominal pain, acute Status: Resolved (3) Abdominal pain, acute Status: Resolved (4) Acute gastroenteritis Status: Resolved (5) Anxiety Status: Chronic (6) Asthma Status: Chronic (7) Asthma exacerbation Status: Resolved (8) Back strain Status: Resolved (9) Bacterial pneumonia Status: Resolved (10) Bronchitis Status: Resolved (11) Depression Status: Chronic (12) Hand laceration Status: Resolved (13) Headache Status: Resolved (14) Hemorrhoid Status: Resolved (15) Mood disorder Status: Resolved (16) Nausea Status: Resolved (17) Nausea, vomiting, and diarrhea Status: Resolved (18) PNA (pneumonia) Status: Resolved (19) Severe gingivitis Status: Chronic (20) Suicidal ideation Status: Resolved (21) Upper respiratory infection Status: Resolved Surgical Problems: (1) Hx of tonsillectomy Status: Resolved (2) S/P tonsillectomy and adenoidectomy Status: Resolved Current/Historical Medications Scheduled PRN Albuterol Hfa (Ventolin Hfa), 2-4 PUFFS INH Q6H PRN for SOB/Wheezing Allergies Coded Allergies: No Known Allergies (Unverified , 12/13/17) Vital Signs Date Time Temp Pulse Resp B/P (MAP) Pulse Ox O2 Delivery O2 Flow Rate FiO2 12/13/17 12:54 36.9 75 20 145/91 98 Room Air 12/13/17 12:54 100 Room Air Departure Information Impression Primary Impression: Acute pharyngitis Additional Impression: URI (upper respiratory infection) Referrals Dejon Kearney, D.O. (PCP) Patient Instructions My [facility] Additional Instructions Acetaminophen(Tylenol) may be used for fever or pain. Use 1000mg every six hours as needed. Avoid using more than 3000mg in a 24 hour period. (AND/OR) Ibuprofen(Motrin, Advil) may be used for fever or pain. Use 600mg every six hours as needed. Take with food. Avoid using more than 2400mg in a 24 hour period. Do not use 2400mg per day for more than three consecutive days without physician direction. Prolonged inappropriate use can lead to stomach upset or ulcers. Pseudoephedrine(Sudaphed): 30-60mg every 6 hours as needed for nasal congestion. Do not take this with other stimulant products or supplements. Guaifenesin (Mucinex) : Take 1200 mg every 12 hours as needed for nasal/chest congestion, to help thin secretions. Rest and drink plenty of fluids. Controlling your fever/pain with Tylenol and Ibuprofen as above will make you feel better. Wash your hands after nose blowing, sneezing, or coughing. Most germs are spread through contact, therefore improper hygiene may result in your close contacts and loved ones becoming ill just like you. Continue current medications. Return to the ER for severe headache, neck stiffness, chest pain, difficulty breathing, fevers, vomiting, worsening of your condition, or as needed. Follow up with your primary physician this week for a recheck of your current condition. Problem Qualifiers
== END 2017-12-13 13:45 | disposition home or self-care (01) ==
LOC: C.EDB 12:49 → C.EDD 13:45
DX: J02.9 Acute pharyngitis, unspecified (principal); F17.210 Nicotine dependence, cigarettes, uncomplicated; F41.9 Anxiety disorder, unspecified; J45.909 Unspecified asthma, uncomplicated; F32.9 Major depressive disorder, single episode, unspecified